=== PATIENT | female | born 1990 | race Caucasian/White ===

== ENCOUNTER → 2023-10-25 10:10 | Outpatient (CLI) | payer OTHER, SELFPAY ==
--- NOTE | 2023-10-25 | DI.US.S_ITS ---
PROCEDURE: US OB >= 14 WEEKS FETUS INDICATIONS: 20 week anatomy scan OUTSIDE/PRIOR DATING DATA: Last menstrual period (LMP): 06/05/2023. LMP-based estimated date of delivery (SEFERINO): 03/11/2024 TECHNIQUE: Real-time scanning was performed of the fetus, with image documentation and biometric measurements. Endovaginal scanning: Not performed COMPARISON: None. FINDINGS: General: A single living intrauterine gestation is present. Presentation: Vertex. Placenta: Placental position is posterior , without previa. Amniotic fluid index: 13.9 cm, normal range is 5-24 cm. Single deepest vertical pocket is 4.6 cm. heart rate: 157 beats per minute. Maternal cervical canal: 3.1 cm long. Normal lower limit is 2.5 cm. biometrics: Biparietal diameter: 4.8 centimeters, 20 weeks 3 days Head circumference: 17.7 centimeters, 20 weeks 1 day Abdominal circumference: 14.9 centimeters, 20 weeks 1 day Femur length: 3.4 centimeters, 20 weeks 5 days Clinically estimated gestational age: 20 weeks 2 days Composite gestational age from present scan: 20 weeks 3 days Estimated weight and percentile: 348 grams, 49th percentile Anatomic survey: Neuro: Ventricles are non-dilated at less than 10 mm. Cisterna magna is normal at 3-11 mm. Cerebellum is normal in size and morphology. Nuchal skin fold: Normal at less than 6 mm between 14-21 weeks gestational age. Face: Nose and lips, facial profile are normal. Spine: No evidence for spina bifida. Heart: 4-chambered heart is present, with normal ventricular outflow tracts. Diaphragm: Diaphragm is intact. Stomach: Left-sided stomach is present. Kidneys: No hydronephrosis. Normal is less than 5 mm in 2nd trimester, less than 7 mm in 3rd trimester. Cord: 3-vessel cord has orthotopic insertion. Bladder: Normal in size. Extremities: All 4 extremities identified. IMPRESSION: 1. Single live intrauterine consistent with 20 weeks and 3 days. 2. Normal anatomic survey. We strive to produce accurate, complete, and clear reports of imaging services. To assist us in improving patient care, this report was composed using standard report templates and voice recognition software. Therefore, it may contain abnormal punctuation, insertions and/or omissions. Occasional wrong-word or sound-alike substitutions may occur. Though we review the report and make efforts to correct it, we do recommend that the report be read carefully in proper context to recognize any text inaccuracies. Dictated by: Channing Andrew M.D. on 10/25/2023 at 14:00 Approved by: Channing Andrew M.D. on 10/25/2023 at 14:10
== END ==
LOC: US 10:12
PROVIDERS: Referring Provider Advanced Practice Midwife; Visit Provider Advanced Practice Midwife
DX: Z34.82 Encounter for supervision of other normal pregnancy, second trimester (principal); Z3A.20 20 weeks gestation of pregnancy
CPT/HCPCS: 76811

== ENCOUNTER → 2024-02-05 10:48 | Outpatient (CLI) | payer OTHER, SELFPAY ==
[2024-02-05 12:06] LABS: Alanine Aminotransferase 38 IU/L (<35); Albumin 3.8 g/dL (3.5-5.0); Albumin Globulin Ratio 1.4 (1.0-2.8); Alkaline Phosphatase 118 U/L (38-126); Aspartate Aminotransferase 31 IU/L (14-36); Bilirubin Total 0.5 mg/dL (0.2-1.3); Bilirubin Unconjugated 0.4 mg/dL (0.0-1.1); Globulin 2.7 g/dL (1.7-4.1); HEMOLYSIS < 15 (0-50); Total Protein 6.5 g/dL (6.3-8.2)
[2024-02-08 10:57] LABS: Bile Acids 13.6 umol/L (0.0-10.0)
== END ==
LOC: LAB 10:52
PROVIDERS: Referring Provider Advanced Practice Midwife; Visit Provider Advanced Practice Midwife
DX: O26.643 Intrahepatic cholestasis of pregnancy, third trimester (principal)
CPT/HCPCS: 36415; 80076; 82239

== ENCOUNTER 2024-02-21 18:22 | Inpatient (IN) | payer OTHER, SELFPAY ==
--- NOTE | 2024-02-21 18:32 | PM.OBHP.1 ---
OB HPI Date/Time Date of admission: 02/21/24 Date Patient Seen: 02/21/24 Time Patient Seen: 18:40 History of Present Condition Chief complaint: INDUCTION : 3 Para: 2 Estimated Date of Delivery: 03/11/24 Estimated Gestational Age (weeks): 37w2d Narrative: Maricarmen Blanc is a 33 year old female at 37 weeks 2 days by sure LMP and concordant with 8 week ultrasound. She presents for induction of labor tonight d/t intrahepatic cholestasis of . She received care with CNMs complicated by anemia in and cholestasis diagnosed at 35 weeks gestation. Bile acids 13.6 on 02/05/24. She is symptomatic with mild itchiness at night, mostly on upper arms and lower back, and rising liver enzymes were noted with labs. She was induced at 36 weeks during her last d/t cholestasis by AROM, leading to precipitous delivery. She has not had regular contractions and reports adequate movement prior to admission. She is here with her and they are excited to meet their third baby girl Ute. Indications Indication for induction OB: medical complication (intrahepatic cholestasis of ) History of Present care: good care, initiated at week # (8), number of visits (8) and pounds weight gain (23) Dating criteria: LMP confirmed by 1st trimester US Ultrasounds: normal 1st trimester US and normal mid trimester US Obstetrical complications: other (Anemia in , Intrahepatic Cholestasis of ) Medical complications: none Preadmission Labs Blood type: A (+) positive -: Antibody screen: negative, Cystic fibrosis screen: unknown, GBS status: negative, HBsAG: negative, HIV: unknown (Declined), HSV 1: negative, HSV 2: negative and RPR/VDLR: negative -: Chlamydia screen: not detected (Declined) and Gonorrhea screen: not detected (Declined) -: Rubella: immune and Varicella: immune HCT: 32.8 HCAB: negative PAP: Normal Cell-free DNA: NIPS negative 1 hr GTT: 89 Prior (ies) History: w/ history of IOL at 37 weeks for cholestasis in last in 2021 Evaluation Evaluation Baseline heart rate: 155 Variability: Moderate (11-25) monitor accelerations: Present Monitor Decelerations: Absent Contraction Frequency (minutes): 2 (2-3) Uterine Contraction Intensity: Moderate Status: Category l Dilation (cm): 5 Effacement (%): 90 Dilation: >/=5 cm Effacement: >/=80% station: -1 Position of cervix: anterior Consistency: soft Smith score: 12 PFSH Medical History (Updated 02/21/24 @ 20:33 by Mahnaz Astudillo CNM, ANDREA) Lichen sclerosus et atrophicus of the vulva Anemia affecting in third trimester Cholestasis during in third trimester Surgical History (Updated 02/21/24 @ 20:07 by Mahnaz Astudillo CNM, ANDREA) H/O lateral meniscus repair of right knee S/P ACL reconstruction Family History (Updated 02/21/24 @ 20:08 by Mahnaz Astudillo CNM, ANDREA) Father Hypertension Social History Smoking Status: Never smoker Meds Home Medications and Allergies Allergies Allergy/AdvReac Type Severity Reaction Status Date / Time No Known Drug Allergies Allergy Verified 02/21/24 19:38 Review of Systems Review of Systems ROS: Yes All systems reviewed with the patient and are negative except as otherwise documented OB Exam Vital signs Blood Pressure: 123/78 Pulse Rate: 88 Respiratory Rate: 17 Temperature: 96.3 F Presentation: vertex Objective Labs 02/21/24 19:05 Assessment and Plan Assessment and Plan Assessment and Plan narrative: Assessment: at 37w2d Intrahepatic cholestasis of Anemia in GBS negative Membranes intact FHR cat 1 Rh positive Lichen sclerosus Plan: CE and AROM with consent Intermittent monitoring Expectant management Anticipate NSVB
[2024-02-21 19:27] VITALS: BP 123/78
[2024-02-21 20:09] LABS: Add Manual Diff / Slide Review NO; Basophils Absolute Auto 0 /uL (0-100); Basophils Percent Auto 0.4 % (0-2); Eosinophils Absolute Auto 100 /uL (0-450); Eosinophils Percent Auto 1.1 % (2-4); Hematocrit 35.8 % (36-46); Hemoglobin 12.1 g/dL (12.0-16.0); Lymphocytes Absolute Auto 1700 /uL (1100-4500); Lymphocytes Percent Auto 23.7 % (25-40); Mean Corpuscular HGB Conc 33.8 % (30-36); Mean Corpuscular Hemoglobin 30.4 PG (26-34); Monocytes Absolute Auto 500 /uL (0-900); Monocytes Percent Auto 7.7 % (3-14); Neutrophils Absolute Auto 4800 /uL (1500-7000); Neutrophils Percent Auto 67.1 % (50-75); Platelet Count 230 X10^3/uL (150-400); Red Blood Cell Count 3.98 X10^6/uL (4.0-5.2); Red Cell Distribution Width 13.7 % (11.6-14.8); White Blood Cell Count 7.1 X10^3/uL (4.5-11.0)
[2024-02-21 20:17] VITALS: BP 123/78; PULSE 88; RESP 17
[2024-02-21 20:26] VITALS: TEMP 35.7
[2024-02-21] MEDS: OXYTOCIN 10 UNIT/ML VIAL IM (22:21)
--- NOTE | 2024-02-21 22:26 | PM.OBPRVD ---
Events: Labor Induction (with AROM only) and Other (Intrahepatic cholestasis of ) Labor & Delivery Delivery date: 02/21/24 Intrapartal Events: Precipitous Labor < 3 hours Cervical ripening method: none Induction method: AROM Delivery augmentation: rupture of membranes Delivery monitor: external FHT and external uterine Route of delivery: L&D Laceration Description: Periurethral - 1st Degree and Superficial Delivery repair: other (Not indicated) Quantitative Blood Loss: 121 Anesthesia Type: None Narrative: Labor progressed well. Maricarmen felt the spontaneous urge to push and pushed effectively for a short 2nd stage. FHR was reassuring with intermittent auscultation throughout 2nd stage. NSVB of baby at 2154, shoulders delivered easily. Colby (FOB) helped deliver baby from maternal hands and knees position and baby was placed on maternal abdomen when Maricarmen rolled over and was ready to receive her. Apgars 9/9. They remained skin to skin while cord was cut and placenta was delivered. Placenta delivered spontaneously with maternal efforts and appeared to be intact. 3 vessel cord clamped and cut by 10 minutes of life after cord pulsing had stopped. Cord blood collected for blood typing. Perineum inspected and found to be intact. Shallow periurethral lacerations noted bilaterally, not requiring repair. Blood loss measured and estimated loss is 121 mL. IM pitocin given after delivery of placenta. Mom and baby left stable and is being initiated. Maricarmen and Colby are thrilled to meet their third baby girl, Ute! Mahnaz MENDEZ, CNM, IBCLC and Nkechi Gorman RN, SNM [place] Baby 1: Infant gender: Female Presentation: vertex Position: Left Occiput Anterior Placenta delivery description: Spontaneous and Normal Configuration Cord Vessel Description: 3 Vessels score (1 min): 9 score (5 min): 9 Plan for aftercare: Routine care
--- NOTE | 2024-02-21 23:03 | P.HPNB_ITS ---
History History weight: 3495 kg Time of : 21:54 Gestation: term Multiple fetuses: No Mode of delivery: vaginal score (1 min): 9 score (5 min): 9 Complications with delivery: No Nursery Course Maternal RH factor: positive Post delivery complications: Reports none Crane Screening screen labs drawn: no Hepatitis B vaccine given: yes Review of Systems Review of Systems ROS: Yes All systems reviewed with the patient and are negative except as otherwise documented Exam - Pediatric Vital Signs Vital Signs: Vital Signs BP 123/78 02/21/24 19:27 Objective Labs 02/21/24 19:05 Labs: Laboratory Results - last 24 hr 02/21/24 19:05 WBC 7.1 RBC 3.98 L Hgb 12.1 Hct 35.8 L MCV 90.0 MCH 30.4 MCHC 33.8 RDW 13.7 Plt Count 230 Neut % (Auto) 67.1 Lymph % (Auto) 23.7 L Carlton % (Auto) 7.7 Eos % (Auto) 1.1 L Baso % (Auto) 0.4 Neut # (Auto) 4800 Lymph # (Auto) 1700 Carlton # (Auto) 500 Eos # (Auto) 100 Baso # (Auto) 0 Blood Type A Positive Antibody Screen Negative Sarnat Scoring Scale Citation Lynette HB, Kelsi L, Kerry C, Rajendra LM, Lauren C, Leon K. Sarnat grading scale for encephalopathy after 45 years: an update proposal. Pediatr Neurol. 2020;113:75?9.
[2024-02-21] MEDS: IBUPROFEN 600 MG TABLET PO (23:15)
[2024-02-21] MEDS: LANOLIN OINT 7 GM 1 APPLIC TOP (23:16)
[2024-02-21] MEDS: DERMOPLAST SPRAY 20% 60 ML 1 SPRAY TOP (23:16)
[2024-02-21 23:33] LABS: Alanine Aminotransferase 75 IU/L (<35); Albumin 3.5 g/dL (3.5-5.0); Albumin Globulin Ratio 1.2 (1.0-2.8); Alkaline Phosphatase 156 U/L (38-126); Aspartate Aminotransferase 51 IU/L (14-36); BUN Creatinine Ratio 27.8 (6-22); Bilirubin Total 0.4 mg/dL (0.2-1.3); Blood Urea Nitrogen 15 mg/dL (7-17); Calcium 8.9 mg/dL (8.4-10.2); Carbon Dioxide 19 mmol/L (22-32); Chloride 107 mmol/L (98-107); Estimated Glomerular Filt Rate > 60 mL/min (>60); Globulin 2.9 g/dL (1.7-4.1); Glucose 133 mg/dL (70-100); HEMOLYSIS < 15 (0-50); Potassium 3.8 mmol/L (3.4-5.1); Sodium 134 mmol/L (137-145); Total Protein 6.4 g/dL (6.3-8.2)
[2024-02-22] MEDS: ACETAMINOPHEN 325 MG TABLET 650 MG PO ×2 (02:07→08:54)
[2024-02-22] MEDS: IBUPROFEN 600 MG TABLET PO ×2 (06:02→14:59)
[2024-02-22] MEDS: DOCUSATE 100 MG CAPSULE PO (08:53)
--- NOTE | 2024-02-22 16:39 | PM.OBDS.1 ---
Discharge Providers Provider Date of admission: 02/21/24 18:22 Discharge Date: 02/22/24 Consults: 02/22/24 22:24 Consult to Predatory Animal Trapper Routine Comment: Discharge provider: Mahnaz Astudillo CNM, ARNP Summary Hospital Course Date Patient Seen: 02/22/24 Time Patient Seen: 16:40 Diagnoses: NSVB Intact perineum Hospital Course: Maricarmen arrived for induction of labor at 5 cm. AROM, clear fluid resulted in NSVB 2.5 hours later. Normal QBL. Normal course. . Peripartum Data Delivery Method: Natural Vaginal Laceration Description: None and Periurethral - 1st Degree Episiotomy description: None Procedures: [place] 1: Gender: Female Disposition of : home Discharge Diagnosis (1) Cholestasis during in third trimester: Status: Acute Problem Details: IOL recommended (2) Supervision of normal in third trimester: Status: Acute (3) Anemia affecting in third trimester: Status: Acute (4) (normal spontaneous vaginal delivery): Status: Acute (5) Mother currently breast-feeding: Status: Acute Status at Discharge Cognitive/behavioral status at discharge: oriented Functional status at discharge: independent ambulation Overall status at discharge: patient is progressing back to baseline Time Spent with Patient Time attestation: Total time spent providing and/or coordinating discharge services: Objective Labs 02/21/24 19:05 02/21/24 23:15 Labs: Laboratory Results - last 24 hr 02/21/24 02/21/24 19:05 23:15 WBC 7.1 RBC 3.98 L Hgb 12.1 Hct 35.8 L MCV 90.0 MCH 30.4 MCHC 33.8 RDW 13.7 Plt Count 230 Neut % (Auto) 67.1 Lymph % (Auto) 23.7 L Barton % (Auto) 7.7 Eos % (Auto) 1.1 L Baso % (Auto) 0.4 Neut # (Auto) 4800 Lymph # (Auto) 1700 Barton # (Auto) 500 Eos # (Auto) 100 Baso # (Auto) 0 Sodium 134 L Potassium 3.8 Chloride 107 Carbon Dioxide 19 L BUN 15 Creatinine 0.54 Estimated GFR > 60 BUN/Creatinine Ratio 27.8 H Glucose 133 H Calcium 8.9 Total Bilirubin 0.4 AST 51 H ALT 75 H Alkaline Phosphatase 156 H Total Protein 6.4 Albumin 3.5 Globulin 2.9 Albumin/Globulin Ratio 1.2 Blood Type A Positive Antibody Screen Negative Exam Vital Signs (past 8 hours): BP 117/84 HR 91 bpm RR 18/min Temp: 97.7 F, temporal SpO2: 98% Other: Fundus firm at U, midline. Lochia scant Perineum intact with minimal edema Discharge Plan Discharge Plan Patient Disposition: Home Discharge orders & Medications Follow up/Referrals: Mahnaz Astudillo, DELIA, SUSTAINABILITY OFFICER [Advanced Production Helper] - 2 Weeks (2 and 6 weeks as scheduled) Diet/Activity/Treatments Diet: Diet as Tolerated and Regular Diet comment: increase fluid and fiber Activity: low anva x 2 weeks Cold/Heat Therapy: as needed Skin/Wound/Dressing Care Skin care: usual care Report to your healthcare provider any signs of infection, such as:: chills, fever, increased pain, unusual drainage and unusual redness Visit Report/Discharge Packet Instructions: DI for Labor and Delivery, Vaginal Stand Alone Forms: Discharge: Care, Patient Portal/API, Stroke Signs & Symptoms
== END 2024-02-22 17:20 | disposition home or self-care (01) | DRG 807 ==
PROVIDERS: Admitting Provider Advanced Practice Midwife; Referring Provider Advanced Practice Midwife; Visit Provider Advanced Practice Midwife
DX: O26.643 Intrahepatic cholestasis of pregnancy, third trimester (principal); Z37.0 Single live birth; O62.3 Precipitate labor; Z3A.37 37 weeks gestation of pregnancy
CPT/HCPCS: 36415; 80053; 85025; 86850; 86900; 86901; G0379; J2590